=== PATIENT | female | born 1985 | race Caucasian/White ===

== ENCOUNTER → 2017-11-17 | Outpatient (CLI) | payer OTHER ==
[~2017-11-17] MED LIST: Augmentin 875-1 EACH PO; Hair, Skin & N1 EACH PO; INSULANPEN SC; Novolog100 UNIT/2; Verotin-Gr Cap1 EACH PO
[2017-11-17 17:23] LABS: Protein, Urine Quantitative 5.8 mg/dL (0.0-11.9)
== END | disposition home or self-care (01) ==
LOC: LAB 12:51
PROVIDERS: Obstetrics & Gynecology
DX: Z33.1 Pregnant state, incidental (principal)
CPT/HCPCS: 81050; 84156

== ENCOUNTER → 2017-11-26 | Outpatient (CLI) | payer OTHER ==
[2017-11-28 13:21] LABS: HPV Genotype 16 Not Detected (NOTDET); HPV Genotype 18 Not Detected (NOTDET)
[2017-12-03 14:57] LABS: HPV High Risk Other Not Detected (NOTDET)
== END | disposition home or self-care (01) ==
LOC: LAB SHORT 09:51 → LAB 09:51
PROVIDERS: Obstetrics & Gynecology
DX: Z36.89 Encounter for other specified antenatal screening (principal)
CPT/HCPCS: 87491; 87591; 87624; G0123

== ENCOUNTER → 2018-01-20 | Outpatient (CLI) | END | disposition home or self-care (01) ==